=== PATIENT | female | born 1950 | race Caucasian/White ===

== ENCOUNTER 2023-06-02 19:52 | Observation (INO) | payer MEDICARE ==
[2023-06-02] MEDS ORDERED: dilTIAZem 25 MG/5 ML VIAL ONE ×2 (20:24→21:28)
[2023-06-02] MEDS ORDERED: Aspirin Chewable 81 MG TAB ONE (20:50)
[2023-06-02 20:58] LABS: #Basophils 0.1 10x3/uL (0.0-0.2); #Eosinphils 0.1 10x3/uL (0.0-0.5); #Monocytes 1.1 10x3/uL (0.0-1.1); #Neutrophils 4.6 10x3/uL (1.5-8.4); %Basophils 1.1 % (0.0-2.0); %Eosinophils 1.4 % (0.0-6.0); %Lymphocytes 36.5 % (18.0-47.0); %Monocytes 11.4 % (0.0-10.0); %Neutrophils 49.4 % (40.0-75.0); Hematocrit 44.4 % (34.9-44.5); Hemoglobin 14.9 g/dL (12.0-15.5); Mean Corpuscular HGB CONC 33.6 g/dL (32.0-36.0); Mean Corpuscular Hemoglobin 30.8 pg (27.0-33.0); Mean Corpuscular Volume 91.9 fl (81.6-98.3); Mean Platelet Volume 10.6 fl (7.4-10.4); Platelet Count 301 10x3/uL (150-450); RBC Distribution Width 12.6 % (11.5-14.5); Red Blood Cell (RBC) Count 4.83 10x6/uL (3.90-5.03); White Blood Cell (WBC) Count 9.3 10x3/uL (3.5-10.5)
[2023-06-02 21:10] LABS: ALT (SGPT) 21 U/L (8-55); AST (SGOT) 25 U/L (5-34); Albumin 4.3 g/dL (3.4-4.8); Alkaline Phosphatase 98 U/L (40-110); Anion Gap 16 mmol/L (10-20); BUN (Urea Nitrogen) 23 mg/dL (9.8-20.1); Bilirubin, Total 0.4 mg/dL (0.2-1.2); Calc. Creatinine Clearance 0 mL/min (70-130); Calcium 9.7 mg/dL (7.8-10.44); Carbon Dioxide 23 mmol/L (23-31); Chloride 105 mmol/L (98-107); Estimated GFR 60; Globulin 2.9 g/dL (2.4-3.5); Glucose 93 mg/dL (83-110); Magnesium 2.2 mg/dL (1.6-2.6); Potassium 4.3 mmol/L (3.5-5.1); Protein, Total 7.2 g/dL (5.8-8.1); Sodium 140 mmol/L (136-145)
[2023-06-02 21:12] LABS: Troponin I Less than 0.010 ng/mL (< 0.028)
[2023-06-02 21:26] LABS: Free T4 (Free Thyroxine) 0.84 ng/dL (0.70-1.48)
[2023-06-03 00:54] LABS: Troponin I Less than 0.010 ng/mL (< 0.028)
[2023-06-03] MEDS ORDERED: ESTRADIOL TD SCH (01:00)
[2023-06-03 02:26] VITALS: BMI 24.9
[2023-06-03 03:39] LABS: Troponin I Less than 0.010 ng/mL (< 0.028)
[2023-06-03 03:47] LABS: Cardiac Risk 3.7 (Less than 4.5)
[2023-06-03] MEDS ORDERED: Amlodipine 5 MG TAB ONE (08:26)
[2023-06-03] MEDS ORDERED: Aspirin Chewable 81 MG TAB ONE (08:26)
[2023-06-03] MEDS: Amlodipine 5 MG TAB PO SCH (08:53)
[2023-06-03] MEDS: Aspirin 81 mg Enteric Coated Tablet PO SCH (08:53)
[2023-06-03] MEDS: CO Q-10 CAPSULE 50 MG PO SCH (08:54)
[2023-06-03] MEDS: Losartan 50 MG TAB PO SCH (08:54)
[2023-06-03] MEDS ORDERED: FLU VACC QS2023(65UP)/MF59C/PF 60 MCG/0.5 ML SYRINGE IM ONE (09:00)
[2023-06-03] MEDS ORDERED: Progesterone,Micronized 100 MG CAP PO SCH (09:00)
[2023-06-03] MEDS ORDERED: Atenolol 25 MG TAB PO SCH (09:00)
[2023-06-03] MEDS ORDERED: [UNRECOGNIZED DRUG - OTHER] PO SCH (09:00)
[2023-06-03] MEDS ORDERED: AMLODIPINE BES PO SCH (09:00)
[2023-06-03] MEDS ORDERED: OLMESARTAN MED PO SCH (09:00)
[2023-06-03] MEDS ORDERED: Electrolyte Replacement Protocol 1 EACH FS SCH (11:45)
[2023-06-03] MEDS ORDERED: Rosuvastatin 10 MG TAB PO SCH (21:00)
[2023-06-03] MEDS: Apixaban 5 MG TAB PO SCH (22:30)
[2023-06-04 04:25] LABS: #Basophils 0.1 10x3/uL (0.0-0.2); #Eosinphils 0.2 10x3/uL (0.0-0.5); #Monocytes 0.8 10x3/uL (0.0-1.1); #Neutrophils 2.6 10x3/uL (1.5-8.4); %Basophils 1.1 % (0.0-2.0); %Eosinophils 3.6 % (0.0-6.0); %Lymphocytes 39.5 % (18.0-47.0); %Monocytes 12.9 % (0.0-10.0); %Neutrophils 42.7 % (40.0-75.0); Hematocrit 37.6 % (34.9-44.5); Hemoglobin 12.6 g/dL (12.0-15.5); Mean Corpuscular HGB CONC 33.5 g/dL (32.0-36.0); Mean Corpuscular Hemoglobin 30.9 pg (27.0-33.0); Mean Corpuscular Volume 92.2 fl (81.6-98.3); Mean Platelet Volume 10.7 fl (7.4-10.4); Platelet Count 237 10x3/uL (150-450); RBC Distribution Width 12.5 % (11.5-14.5); Red Blood Cell (RBC) Count 4.08 10x6/uL (3.90-5.03); White Blood Cell (WBC) Count 6.2 10x3/uL (3.5-10.5)
[2023-06-04 04:36] LABS: Anion Gap 13 mmol/L (10-20); BUN (Urea Nitrogen) 16 mg/dL (9.8-20.1); Calc. Creatinine Clearance 66 mL/min (70-130); Calcium 8.9 mg/dL (7.8-10.44); Carbon Dioxide 23 mmol/L (23-31); Chloride 110 mmol/L (98-107); Estimated GFR 77; Glucose 82 mg/dL (83-110); Magnesium 1.9 mg/dL (1.6-2.6); Potassium 4.1 mmol/L (3.5-5.1); Sodium 142 mmol/L (136-145)
[2023-06-04 07:48] VITALS: TEMP 97.9
[2023-06-04] MEDS ORDERED: Magnesium 2 GM/50 ML(in water) 2 GM in Premix 1 BAG IVPB SCH (08:00)
[2023-06-04] MEDS: Aspirin 81 mg Enteric Coated Tablet PO SCH (08:39)
[2023-06-04] MEDS: Amlodipine 5 MG TAB PO SCH (08:39)
[2023-06-04] MEDS: Losartan 50 MG TAB PO SCH (08:39)
[2023-06-04] MEDS: CO Q-10 CAPSULE 50 MG PO SCH (08:39)
[2023-06-04] MEDS: Apixaban 5 MG TAB PO SCH (08:39)
[2023-06-04] MEDS ORDERED: Flecainide 50 MG TAB PO SCH (09:00)
[2023-06-04] MEDS ORDERED: Triamterene/Hydrochlorothiazide 37.5 mg/25 mg Tablet PO SCH (09:00)
[2023-06-04] MEDS ORDERED: Progesterone,Micronized 100 MG CAP PO SCH (11:30)
[2023-06-04 11:36] VITALS: BP 129/68
[2023-06-05] MEDS ORDERED: Progesterone,Micronized 100 MG CAP PO SCH ×2 (09:00)
== END 2023-06-04 13:42 | disposition home or self-care (01) ==
LOC: CSHERS 19:52 → UNDOADMOB 21:48 → INTOOBSV 21:48 → CSHERHOLD 21:48 → CSHTELE 06-03 12:42
PROVIDERS: ADMIT Family Medicine; ATTEND Internal Medicine
DX: I48.91 Unspecified atrial fibrillation (principal); I10 Essential (primary) hypertension; R00.1 Bradycardia, unspecified; I73.9 Peripheral vascular disease, unspecified; E78.5 Hyperlipidemia, unspecified; Z79.82 Long term (current) use of aspirin; Z79.899 Other long term (current) drug therapy
CPT/HCPCS: 71045; 80048; 80061; 83735 ×2; 83880; 84439; 84484 ×3; 85025; 93005 ×3; 93306; 96375; G0378 ×3; 36415; 80053; 84443; 93010; J1650; J3475